=== PATIENT | female | born 1960 | race Caucasian/White ===

== ENCOUNTER → 2022-07-09 10:28 | Outpatient (BNVA) | payer MEDICARE, SELFPAY | PROVIDERS: Visit Provider Obstetrics & Gynecology | DX: N81.89 Other female genital prolapse (principal) | CPT/HCPCS: 81000 ==

== ENCOUNTER 2022-12-12 14:31 | Observation (INO) | payer MEDICARE, SELFPAY ==
[2022-12-10 11:03] LABS: Add Urine Microscopic? NO; Charge for UA Resulting for Rev
[2022-12-10 11:04] LABS: Basophils % 0.6 %; Eosinophils # 0.2 10^3/uL (0.0-0.8); Eosinophils % 4.3 %; Hematocrit 44.3 % (37.0-47.0); Hemoglobin 14.7 g/dL (11.5-15.3); Lymphocytes # 1.7 10^3/uL (0.8-4.8); Lymphocytes % 31.2 %; Mean Corpuscular HGB Conc 33.2 g/dL (30.0-36.0); Mean Corpuscular Hemoglobin 30.4 pg (28.0-34.0); Mean Corpuscular Volume 91.5 fl (81-99); Mean Platelet Volume 9.9 fL (7.4-10.4); Monocytes # 0.4 10^3/uL (0.2-0.9); Monocytes % 7.8 %; Neutrophils % 55.7 %; Nucleated Red Blood Cells % 0 %; Platelet Count 207 10^3/cmm (130-400); Red Blood Count 4.84 10^6/uL (4.1-5.3); Red Cell Distribution Width 12.5 % (12.1-15.1); White Blood Count 5.4 10^3/uL (4.0-10.0)
[2022-12-10 11:13] LABS: Bilirubin Urine Neg (Negative); Blood Urine Neg (Negative); Glucose Urine UA Norm (Normal); Ketones Urine Negative (Negative); Leukocyte Esterase Urine Negative (Negative); Nitrate Urine Negative (Negative); Protein Urine Neg (Negative); Urine Appearance Clear (CLEAR); Urine Color Yellow (Yellow); Urobilinogen Urine Neg (Negative); pH Urine 5 (5-7)
[2022-12-10 11:15] VITALS: BMI 29.3
[2022-12-10 11:25] LABS: Alanine Aminotransferase 27 U/L (0-33); Albumin Level 4.5 g/dL (3.5-5.2); Alkaline Phosphatase 80 U/L (35-105); Anion Gap 12.2 (5-19); Aspartate Amino Transferase 56 U/L (0-32); Blood Urea Nitrogen 16 mg/dL (8-23); Calcium 9.3 mg/dL (8.5-10.5); Carbon Dioxide 30 mmol/L (22-29); Chloride 101 mmol/L (98-107); Globulin 3.1 g/dL (1.3-4.6); Glomerular Filtration Rate 72.7 mL/min (90-130); Glucose 79 mg/dL (65-115); Osmolality Calculated 288 mOsm/kg (285-295); Potassium 4.2 mmol/L (3.5-5.1); Sodium 139 mmol/L (136-145); Total Bilirubin 0.7 mg/dL (0.15-1.2); Total Protein 7.6 g/dL (6.6-8.7)
--- NOTE | 2022-12-10 11:29 | P.ANESASSM_ITS ---
Pre-Anesthetic Assessment Height/Weight: Height 1.66 m Weight 81.193 kg Preop Diagnosis: Cystocele stage III Operation Date: 12/12/22 12:40 Proposed Procedures p Laparoscopic assisted vaginal hysterectomy, bilateral salpingo-oophorectomy 06290, Anterior colporrhaphy 18917, Single incision sling 32780,N81.10,N81.4(Not Applicable) - José Miguel Guerra MD s Anterior Repair Anterior Colporrhaphy(Not Applicable) - José Miguel Guerra MD s Sling Single Incision Sling(Not Applicable) - José Miguel Guerra MD Familial anesthetic complications: None Social No alcohol and No tobacco Exam alert, oriented x 3, clear to auscultation bilaterally and regular rate & rhythm Airway Mallampati: Class II Dentition: false Pulmonary None reported CV/HEM Hypertension Dextrocardia None reported Hepatic None reported GI Gastroesophageal Reflux Disease Metabolic None reported Musc/skel Lower Back Pain Neuropsych None reported Anesthetic Plan ASA status: 3 Anesthesia: General Risk of > 500 ml blood loss (7ml/kg in children): Yes, adequate IV access and fluids planned Medications/Allergies Home Medications Medication Instructions Recorded Confirmed Last Taken Type atorvastatin 10 mg tablet (Lipitor) 10 mg PO DAILY 07/09/22 12/10/22 12/10/22 History calcium carbonate 500 mg calcium 500 mg PO DAILY 07/09/22 12/10/22 12/10/22 History (1,250 mg) chewable tablet (Calcium 500) cholecalciferol (vitamin D3) 250 250 mcg PO DAILY 07/09/22 12/10/22 12/10/22 History mcg (10,000 unit) capsule diphenhydramine HCl 25 mg capsule 25 mg PO TID PRN Allergy Symptoms 07/09/22 12/10/22 12/09/22 History (Benadryl) lisinopril 5 mg tablet 5 mg PO DAILY 07/09/22 12/10/22 12/10/22 History omega 5-ysf-crp-fish oil 300 1 cap PO DAILY 07/09/22 12/10/22 12/10/22 History mg-1,000 mg capsule (Fish Oil) paroxetine HCl 40 mg tablet (Paxil) 40 mg PO DAILY 07/09/22 12/10/22 12/10/22 History buspirone 5 mg tablet 2.5 mg PO TID 12/10/22 12/10/22 12/10/22 History coenzyme Q10 10 mg capsule (Co 10 mg PO DAILY 12/10/22 12/10/22 12/10/22 History Q-10) lansoprazole 30 mg capsule,delayed 30 mg PO DAILY 12/10/22 12/10/22 12/10/22 History release (Prevacid) apcvveym-nth-uqzod ac 400 1 tab PO DAILY 12/10/22 12/10/22 12/10/22 History mcg-calcium carb 500 mg-vit K1 20 mcg tablet (Women's 50 Plus Daily Formula) ondansetron 4 mg disintegrating 4 mg translingual Q8H PRN Nausea 12/10/22 12/10/22 11/22/22 History tablet sumatriptan succinate 50 mg tablet 50 mg PO Q2H PRN Migraine Headache 12/10/22 12/10/22 11/22/22 History Allergies Allergy/AdvReac Type Severity Reaction Status Date / Time No Known Allergies Allergy Verified 12/10/22 09:04 PFSH Anesthesia Family History Other Ovarian cancer Denies family history of Colon cancer Pancreatic cancer Thyroid cancer Diabetes Heart disease Breast cancer Cancer Hypertension Uterine cancer Social History Smoking and tobacco status: never smoked Data Anesthesia 12/10/22 10:45 12/10/22 10:45 Short CBC 12/10/22 Range/Units 10:45 WBC 5.4 (4.0-10.0) 10^3/uL Hgb 14.7 (11.5-15.3) g/dL Hct 44.3 (37.0-47.0) % MCV 91.5 (81-99) fl Plt Count 207 (130-400) 10^3/cmm Neut % (Auto) 55.7 % Neut # (Auto) 3.00 (1.8-7.7) 10^3/uL BMP 12/10/22 10:45 Sodium 139 Potassium 4.2 Chloride 101 Carbon Dioxide 30 H BUN 16 Creatinine 0.8 Glucose 79 Calcium 9.3 Liver Function 12/10/22 Range/Units 10:45 Total Bilirubin 0.7 (0.15-1.2) mg/dL AST 56 H (0-32) U/L ALT 27 (0-33) U/L Alkaline Phosphatase 80 (35-105) U/L Albumin 4.5 (3.5-5.2) g/dL Urine 12/10/22 Range/Units 10:45 Urine Color Yellow (Yellow) Urine Appearance Clear (CLEAR) Urine pH 5 (5-7) Ur Specific [place] 1.030 (1.005-1.030) Urine Protein Neg (Negative) Urine Glucose (UA) Norm (Normal) Urine Ketones Negative (Negative) Urine Nitrate Negative (Negative) Urine Bilirubin Neg (Negative) Ur Leukocyte Esterase Negative (Negative) Cardiac Studies: No Data to Display
[2022-12-12] VITALS (18 sets, daily range): BP systolic 84–139; BP diastolic 48–83; PULSE 103–124; RESP 14–32; TEMP 36.1–37.2; O2SAT 90–99
[2022-12-12] MEDS: enoxaparin 30 mg/0.3 mL Syringe SUBCUT (09:19)
[2022-12-12] MEDS: sodium chloride 0.9% 500 ML IV (09:19)
[2022-12-12] MEDS: scopolamine 1.5 Patch 1 PATCH TRANSDERMA (09:19)
--- NOTE | 2022-12-12 09:27 | P.ANESUD_ITS ---
Pre-Anesthetic Update Pre-Anesthetic Assessment: Date of Surgery/Procedure: 12/12/22 Preop Payal gnosis: Cystocele stage III Proposed Procedure: Operation Date: 12/12/22 10:20 Proposed Procedures p Laparoscopic assisted vaginal hysterectomy, bilateral salpingo-oophorectomy 64392, Anterior colporrhaphy 01865, Single incision sling 99767,N81.10,N81.4(Not Applicable) - José Miguel Guerra MD s Anterior Repair Anterior Colporrhaphy(Not Applicable) - José Miguel Guerra MD s Sling Single Incision Sling(Not Applicable) - José Miguel Guerra MD Any changes to Pre-Anesthetic Assessment?: No Last Intake: Intake Last Liquid Date 12/11/22 Last Liquid Time 21:00 Last Solid Date 12/11/22 Last Solid Time 18:00 Labs Last 48hrs: Short CBC 12/10/22 Range/Units 10:45 WBC 5.4 (4.0-10.0) 10^3/ uL Hgb 14.7 (11.5-15.3) g/dL Hct 44.3 (37.0-47.0) % MCV 91.5 (81-99) fl Plt Count 207 (130-400) 10^3/c mm Neut % (Auto) 55.7 % Neut # (Auto) 3.00 (1.8-7.7) 10^3/u L BMP 12/10/22 10:45 Sodium 139 Potassium 4.2 Chloride 101 Carbon Dioxide 30 H BUN 16 Creatinine 0.8 Glucose 79 Calcium 9.3 Liver Function 12/10/22 Range/Units 10:45 Total Bilirubin 0.7 (0.15-1.2) mg/dL AST 56 H (0-32) U/L ALT 27 (0-33) U/L Alkaline Phosphata se 80 (35-105) U/L Albumin 4.5 (3.5-5.2) g/dL Urine 12/10/22 Range/Units 10:45 Urine Color Yellow (Yellow) Urine Appearance Clear (CLEAR) Urine pH 5 (5-7) Ur Specific [place] 1.030 (1.005-1.030) Urine Protein Neg (Negative) Urine Glucose (UA) Norm (Normal) Urine Ketones Negative (Negative) Urine Nitrate Negative (Negative) Urine Bilirubin Neg (Negative) Ur Leukocyte Marielle ase Negative (Negative) Blood Bank 12/10/22 10:45 Blood Type O Positive Rho(D) Type Positive Antibody Screen Negative Vitals: Temperature 97 F L 12/12/22 08:58 Temperature Source Temporal Artery S can 12/12/22 08:58 Pulse Rate 105 H 12/12/22 08:58 Respiratory Rate 16 12/12/22 08:58 Blood Pressure 139/83 12/12/22 08:58 Blood Pressure Beatris n 101 12/12/22 08:58 Pulse Oximetry 98 12/12/22 08:58 Oxygen Delivery Me thod 12/12/22 09:04 Exam: Pre-Anes Outpt Exam: alert, oriented x 3, clear to auscultation bilaterally and regular rate & rhythm Cardiac Studies: No Data to Display
--- NOTE | 2022-12-12 09:51 | W.PM.OPSUD ---
Surgery/Procedure H&P Update DATE OF PROCEDURE: December 12, 2022 DATE H&P PERFORMED: 12/10/22 H&P UPDATE INFORMATION: I have reviewed H&P completed within last 30 days, I have examined patient prior to procedure and No changes to prior documentation PREOP DIAGNOSIS: Cystocele stage III PLANNED PROCEDURE: Operation Date: 12/12/22 10:20 Proposed Procedures p Laparoscopic assisted vaginal hysterectomy, bilateral salpingo-oophorectomy 26745, Anterior colporrhaphy 39108, Single incision sling 98731,N81.10,N81.4(Not Applicable) - José Miguel Guerra MD s Anterior Repair Anterior Colporrhaphy(Not Applicable) - José Miguel Guerra MD s Sling Single Incision Sling(Not Applicable) - José Miguel Guerra MD
[2022-12-12] MEDS: sodium chloride 0.9% 500 ML 999 ML IV (10:10)
[2022-12-12] MEDS: ceFOXitin 2,000 MG in sodium chloride 0.9% (plus) 50 ML 100 MG IV (10:13)
[2022-12-12] MEDS: lidocaine-epi 1% 20 mL INJ INJECTION (12:48)
[2022-12-12] MEDS: estrogens Conjugated Cream 30 gm 1 APPLIC VAGINAL (12:49)
--- NOTE | 2022-12-12 13:47 | P.OP_ITS ---
Operative Report Date of procedure: December 12, 2022 Pre-op diagnosis: Preop Diagnosis Cystocele stage III Post-op diagnosis: Same as above Post-op findings: Dense bladder adhesions Procedure done: Laparoscopic-assisted vaginal hysterectomy with bilateral salpingo-oophorectomy. Anterior colporrhaphy augmented with allograft. Single incision mid urethral sling. Cystoscopy Specimens removed/disposition: Uterus. Left and right fallopian tube and ovaries Surgeon: José Miguel Guerra MD Estimated blood loss (mL): 200 IV fluids (mL): 1,200 Urine output (mL): 400 Procedure: After discussing informed consent again, the patient was taken to the operating room where general anesthesia was administered. She was placed in the dorsal lithotomy position in low stirrups and prepped and draped in sterile fashion. Pre-Procedure Time-Out verifying the correct patient identity, correct procedure verified with consent, correct site and side, correct patient position, availability of correct implants and any special equipment or requirements was performed and acknowledge by the OR team. After the initial preparation, the procedure commenced at the vagina. With a Bookwalter vaginal retractor was place to visualize the cervix; the anterior and posterior lips of the cervix were separately grasped and clamped with leslie tooth tenaculum. The cervix was then dilated to a #6 hegar dilator and a uterine manipulator within the uterine cavity for manipulation purposes being careful not to puncture the uterus. A Sinclair catheter was placed in the bladder. Attention was then turned to the abdomen. The umbilical region was infiltrated with 2% lidocaine with epinephrine Following infiltration with 2% lidocaine with epinephrine, an intraumbilical incision was made and the Verres needle was gently advanced taking care to feel for the typical sensation of penetrating the peritoneum. With CO2 infiltration, an opening pressure of 5 mmHg was noted, and following this, a pneumoperitoneum of 15 mmHg was created. A 5 mm Optiview trocar was then passed through the same incision under direct visualization. Trocar was removed and the laparoscope was then inserted through the trocar sleeve. Visualization of the peritoneal cavity was then obtained and a brief inspection did not reveal any signs of complications from entry. Under direct observation, a second incision was made 3 cm above the symphysis pubis, and a 5 mm trocar and sleeve were admitted into the abdomen under direct, laparoscopic visualization, 5mm flank ports were then placed laterally on left sides taking care to respect anatomical landmarks and vessels without complication. Once the placement of the ports was complete, the actual laparoscopic procedure began. The pelvic contents were visualized and noted an enlarged irregular uterus, deep cul-de-sac, normal bilateral fallopian tubes and ovaries normal, normal appendix, and both ureters were identified crossing the pelvic brim and pelvic sidewall. The left infundibulopelvic ligament was grasped and was coagulated/sealed and then transected with the Enseal device. The mesosalpinx was then sequentially, clamped, ligated, and cut using the Enseal device working alongside the length of the tube and towards the cornua. The left round ligament was grasped coagulated/sealed and transected using Enseal device. The left broad ligament was opened down to the level of the uterine artery and vein. The right infundibulopelvic ligament was grasped and the tuboovarian ligament was coagulated/sealed and then transected with the Enseal device. The mesosalpinx was then sequentially, clamped, ligated, and cut using the Enseal device working alongside the length of the tube and towards the cornua. The right round ligament was grasped coagulated/sealed and then transected with the Enseal device, and the right broad ligament was opened down to the level of the right uterine artery and vein. Peritoneum of the lower uterine segment was entered using Enseal, and the bladder was dissected off the lower uterine segment using blunt dissection. Careful inspection revealed complete hemostasis. Attention was then turned to the vaginal aspect of the surgery. A Bookwalter vaginal retractor was placed in the vagina and the uterine manipulator was removed. The tenaculum was repositioned anteriorly and posteriorly. A circumferential incision was made at the cervical vaginal reflection using cautery. This was undermined first anteriorly and a colpotomy made without difficulty. This was then repeated posteriorly and a similar colpotomy made. Beginning first on the patient's left, the uterosacral and cardinal ligament was clamped, sealed, divided with the Enseal device and suture ligated. Two bites were required to reach the previous dissection margin of the left side. The same process was then repeated on the patient's right hand side, at which point, the specimen was completely freed. Once the sutures had been placed and the pedicles secured, the uterus along with both tubes and ovaries were removed transvaginally without difficulty. All pedicles were inspected and hemostasis was confirmed. The patietn was given indigo carmine. The vaginal vault was then oversawn with a running locking Vicryl suture, securing first the posterior edge of the cuff followed by the anterior edge. Good hemostasis was obtained. Once these had been tied off, all sutures were trimmed. Then proceeded to perform the single incision sling. The anterior vaginal mucosa beneath the midurethra was infiltrated with 0.5% Marcaine with epinephrine. A vertical midline incision was made beneath the midurethra, nearly 1.5 cm length. Careful submucosal dissection was performed bilaterally up to the interior portion of the inferior pubic ramus. The insertion of adductor longus tendon on the patient?s pubic ramus was identified as reference land kaitlynn. Palpated the notch along the internal edge of ischiopubic ramus where the adductor longus tendon and the inferior pubic ramus meet. The Altis single incision sling (SIS) was selected. Then the needle of the SIS inserted aiming at the location of this notch. One of the integrated self- fixating tips place onto the needle by sliding it over the end of the needle. The needle/sling assembly was inserted toward the location of identified reference notch making sure that the flat of the handle is perpendicular to the desired path. The needle was tracked along the posterior surface of the ischiopubic ramus until the midline kaitlynn on the mesh is approximately at the midline position under the urethra. The needle was removed and the same was repeated on the contralateral side until the appropriate sling tension under the urethra was achieved ensuring that the mesh lays flat. The needle was removed and vaginal incision was closed in a running interlocking fashion with 2-0 Vicryl. The perform the anterior colporrhaphy augmented with allograft. The vaginal mucosa was then injected in the midline with normal saline. The vaginal mucosa was scored in the midline with the Bovie approximately 1 cm medial to the urethral meatus to 1 cm distal to the vaginal cuff. This vaginal mucosa was then undermined and then incised in the midline with the Metzenbaum scissors. The lateral aspects of the vaginal mucosa were then grasped with the Allis clamps and the vaginal mucosa was then dissected off the underlying fascia with the Metzenbaum scissors. Again, there was noted to be quite a bit of oozing at the incision, which was controlled with cautery. After adequate dissection was performed, bilaterally. A Coloplast allograft was modified at time of application to fit spacea, 3x3 cm piece . The allograft placed in front of cystocele ready to be implanted facing the vagina mucosa. Suture is placed at distal end of graft and placed towards vaginal cuff. Final suture is placed on proximal portion of the graft to complete the placement overlying the bladder. Then Interrupted vertical mattress sutures of 0 Vicryl were used to elevate the cystocele superiorly. The excessive vaginal mucosa was then trimmed with the Metzenbaum scissors and the vaginal mucosa was then reapproximated in the running interlocking fashion with 2-0 Vicryl. Then attention was again turned back to the abdomen and inspected the abdomen to ensure complete hemostasis. Once the entire abdomen was inspected. The ports were then removed under direct visualization being sure to note hemostasis of the port sites on removal. The incisions were then closed with interrupted Monocryl sutures and Dermabond adhesive. Then the Sinclair catheter was removed and cystoscope was inserted. The bladder was filled with sterile water. Complete evaluation of the bladder mucosa was performed noting no lacerations, dimpling, tears, bleeding of the mucosa or muscular layers. Both ureteral orifices were identified. Prompt excretion of blue urine from both ureteral orifices was noted. Cystoscope was withdrawn. The Sinclair catheter was replaced. All instruments were removed from the vagina at this time. A vaginal packing with Premarin cream was placed to provide support during the healing process. The patient tolerated the procedure well, anesthesia reversed, and the patient was taken to the recovery room in stable condition. All sponges, instruments, and sharps were counted and correct x 3.
--- NOTE | 2022-12-12 14:25 | PC.NURSE ---
Nasal trumpet removed @1405 Patient seeing cats. Redirected easily
--- NOTE | 2022-12-12 14:57 | ANE.PACU2 ---
Inpatient post-anesthesia follow up: Airway intact: Yes Vital signs: Temperature 98.1 F Pulse Rate 109 Respiratory Rate 16 Blood Pressure 105/54 Pulse Oximetry 93 Oxygen Delivery Me thod Room Air Oxygen Flow Rate 2 Fraction of Inspir ed Oxygen Hydration adequate: Yes Nausea and vomiting: No Pain level: 1 Mental status: Baseline
[2022-12-12] MEDS: dextrose 5%-lactated ringers 1,000 ML 125 ML IV (16:11)
[2022-12-12] MEDS: docusate sodium 100 mg Capsule PO (17:39)
[2022-12-12] MEDS: ketorolac 30 mg/mL INJ IVP (19:39)
[2022-12-13] MEDS: dextrose 5%-lactated ringers 1,000 ML 125 ML IV (00:32)
[2022-12-13] MEDS: ketorolac 30 mg/mL INJ IVP (01:12)
[2022-12-13 04:23] VITALS: BP 104/56; PULSE 93; RESP 17; TEMP 36.7; O2SAT 99
[2022-12-13 05:09] LABS: Hematocrit 30.8 % (37.0-47.0); Hemoglobin 10.1 g/dL (11.5-15.3); Mean Corpuscular HGB Conc 32.8 g/dL (30.0-36.0); Mean Corpuscular Hemoglobin 29.7 pg (28.0-34.0); Mean Corpuscular Volume 90.6 fl (81-99); Mean Platelet Volume 9.7 fL (7.4-10.4); Platelet Count 134 10^3/cmm (130-400); Red Cell Distribution Width 12.7 % (12.1-15.1); White Blood Count 6.9 10^3/uL (4.0-10.0)
--- NOTE | 2022-12-13 05:12 | PC.NURSE ---
Sinclair catheter removed 10 ml was taken from the ballon catheter was intact upon removal patient tolerated procedure well. She has been up to the chair and walked through out the night. She has had solid food and tolerated it well. Her pain has been well managed. Vaginal packing was removed at this time as well. She tolerated the procedure well.
[2022-12-13] MEDS: ibuprofen 800 mg tablet PO (10:33)
[2022-12-13] MEDS: docusate sodium 100 mg Capsule PO (10:34)
[2022-12-13] MEDS: calcium carbonate 500 mg Chew Tablet PO (10:34)
[2022-12-13 10:45] VITALS: BP 112/59; PULSE 90; RESP 17; TEMP 36.6; O2SAT 99
--- NOTE | 2022-12-13 11:23 | P.DS_ITS ---
Discharge Providers ANIMATED CARTOONS PAINTER Date of Admission: 12/12/22 14:31 Date of Discharge: 12/13/22 Attending Provider at Admission: José Miguel Guerra MD Attending Provider at Discharge: José Miguel Guerra MD Primary ANIMATED CARTOONS PAINTER: José Miguel Guerra MD Primary Care Provider: Evie Brunner Reason for Visit Reason for Visit: N81.4 Brief History: Ms. Woods is a 62 year old with a symptomatic cystocele stage III. Hospital Course Hospital Course Mrs. Woods 62-year-old female admitted for planned laparoscopic assisted vaginal hysterectomy with bilateral salpingo-oophorectomy, anterior colporrhaphy augmented with allograft and single incision mid urethral sling. The procedures were performed without complications. Overnight observation was uneventful. She is afebrile and hemodynamically stable postoperative day 1. Tolerating diet well. Ambulating without difficulty. PVR within normal limits. Patient was counseled regarding pelvic rest for 6 weeks (no sex, no tampons, no vaginal douches). Return to the emergency room if any fever, increased bleeding or pain. She was also counseled regarding weight lifting limitations to 10 pounds. Physical Exam Narrative: GA: Alert and oriented ?3. HEENT: WNL. Heart: Regular rate and rhythm. Lungs: Clear to auscultation bilaterally. Abdomen: Bowel sounds present, nontender, minimal tenderness. EXECUTOR OF ESTATE: Spotting bleeding. Extremities: No edema, no cyanosis, no calves pain. Urinary Catheter Management: Sinclair: Cath Placed During This Visit: yes, but has since been removed by the nurse Reason for Continuing Indwelling Catheter: Decision to DC Catheter Urinary Catheter Date of Insertion: 12/12/22 Urinary Catheter Time of Insertion: 10:55 Date Urinary Catheter Removed: 12/13/22 Time Urinary Catheter Discontinued: 05:00 History History History 6 Term 4 0 Miscarriages/Ectopic 2 Living Children 4 Discharge Data Studies Completed and Pending Pending at discharge Category Date Time Status Pathology: Surgical [PTH] Routine Pth 12/12/22 12:35 Received Laboratory Results WBC 6.9 10^3/uL (4.0-10.0) 12/13/22 04:59 RBC 3.40 10^6/uL (4.1-5.3) L 12/13/22 04:59 Hgb 10.1 g/dL (11.5-15.3) L 12/13/22 04:59 Hct 30.8 % (37.0-47.0) L 12/13/22 04:59 MCV 90.6 fl (81-99) 12/13/22 04:59 MCH 29.7 pg (28.0-34.0) 12/13/22 04:59 MCHC 32.8 g/dL (30.0-36.0) 12/13/22 04:59 RDW 12.7 % (12.1-15.1) 12/13/22 04:59 Plt Count 134 10^3/cmm (130-400) 12/13/22 04:59 MPV 9.7 fL (7.4-10.4) 12/13/22 04:59 Neut % (Auto) 55.7 % 12/10/22 10:45 Lymph % (Auto) 31.2 % 12/10/22 10:45 [place] % (Auto) 7.8 % 12/10/22 10:45 Eos % (Auto) 4.3 % 12/10/22 10:45 Baso % (Auto) 0.6 % 12/10/22 10:45 Neut # (Auto) 3.00 10^3/uL (1.8-7.7) 12/10/22 10:45 Lymph # (Auto) 1.7 10^3/uL (0.8-4.8) 12/10/22 10:45 [place] # (Auto) 0.4 10^3/uL (0.2-0.9) 12/10/22 10:45 Eos # (Auto) 0.2 10^3/uL (0.0-0.8) 12/10/22 10:45 Baso # (Auto) 0.0 10^3/uL (0.0-0.1) 12/10/22 10:45 Nucleated RBC % (auto) 0 % 12/10/22 10:45 Nucleated RBCs # 0.0 /100WBC 12/10/22 10:45 Sodium 139 mmol/L (136-145) 12/10/22 10:45 Potassium 4.2 mmol/L (3.5-5.1) 12/10/22 10:45 Chloride 101 mmol/L (98-107) 12/10/22 10:45 Carbon Dioxide 30 mmol/L (22-29) H 12/10/22 10:45 Anion Gap 12.2 (5-19) 12/10/22 10:45 BUN 16 mg/dL (8-23) 12/10/22 10:45 Creatinine 0.8 mg/dL (0.5-0.9) 12/10/22 10:45 GFR Calculation 72.7 mL/min (90-130) L 12/10/22 10:45 Glucose 79 mg/dL (65-115) 12/10/22 10:45 Calculated Osmolality 288 mOsm/kg (285-295) 12/10/22 10:45 Calcium 9.3 mg/dL (8.5-10.5) 12/10/22 10:45 Total Bilirubin 0.7 mg/dL (0.15-1.2) 12/10/22 10:45 AST 56 U/L (0-32) H 12/10/22 10:45 ALT 27 U/L (0-33) 12/10/22 10:45 Alkaline Phosphatase 80 U/L (35-105) 12/10/22 10:45 Total Protein 7.6 g/dL (6.6-8.7) 12/10/22 10:45 Albumin 4.5 g/dL (3.5-5.2) 12/10/22 10:45 Globulin 3.1 g/dL (1.3-4.6) 12/10/22 10:45 Urine Color Yellow (Yellow) 12/10/22 10:45 Urine Appearance Clear (CLEAR) 12/10/22 10:45 Urine pH 5 (5-7) 12/10/22 10:45 Ur Specific [place] 1.030 (1.005-1.030) 12/10/22 10:45 Urine Protein Neg (Negative) 12/10/22 10:45 Urine Glucose (UA) Norm (Normal) 12/10/22 10:45 Urine Ketones Negative (Negative) 12/10/22 10:45 Urine Blood Neg (Negative) 12/10/22 10:45 Urine Nitrate Negative (Negative) 12/10/22 10:45 Urine Bilirubin Neg (Negative) 12/10/22 10:45 Urine Urobilinogen Neg mg/dL (Negative) 12/10/22 10:45 Ur Leukocyte Esterase Negative (Negative) 12/10/22 10:45 Blood Type O Positive 12/10/22 10:45 Rho(D) Type Positive 12/10/22 10:45 Antibody Screen Negative 12/10/22 10:45 Vitals Last Vital Signs Temp 97.9 F 12/13/22 10:45 Pulse 90 12/13/22 10:45 Resp 17 12/13/22 10:45 BP 112/59 12/13/22 10:45 Pulse Ox 99 12/13/22 10:45 O2 Del Method 12/13/22 10:45 O2 Flow Rate 2 12/12/22 14:25 Discharge Plan Discharge Patient Disposition: Home Condition: Stable Prescriptions: New ibuprofen 800 mg tablet 800 mg PO TID PRN (Reason: pain) Qty: 60 0RF hydrocodone-acetaminophen 5-325 mg tablet 1 tab PO Q4H PRN (Reason: pain) Qty: 20 0RF Iron (ferrous sulfate) 325 mg (65 mg iron) tablet 325 mg PO BID Qty: 60 0RF Colace 100 mg capsule 100 mg PO BID Qty: 60 0RF acetaminophen 325 mg capsule 325 mg PO Q4H PRN (Reason: fever or pain) Qty: 60 0RF Continued diphenhydramine HCl [Benadryl] 25 mg capsule 25 mg PO TID PRN (Reason: Allergy Symptoms) calcium carbonate [Calcium 500] 500 mg calcium (1,250 mg) tablet,chewable 500 mg PO DAILY omega 5-avc-yuj-fish oil [Fish Oil] 300-1,000 mg capsule 1 cap PO DAILY cholecalciferol (vitamin D3) 250 mcg (10,000 unit) capsule 250 mcg PO DAILY atorvastatin [Lipitor] 10 mg tablet 10 mg PO DAILY paroxetine HCl [Paxil] 40 mg tablet 40 mg PO DAILY lisinopril 5 mg tablet 5 mg PO DAILY buspirone 5 mg tablet 2.5 mg PO TID coenzyme Q10 [Co Q-10] 10 mg capsule 10 mg PO DAILY sumatriptan succinate 50 mg tablet 50 mg PO Q2H PRN (Reason: Migraine Headache) lansoprazole [Prevacid] 30 mg Capsule,Delayed Release(Dr/Ec) 30 mg PO DAILY ondansetron 4 mg tablet,disintegrating 4 mg translingual Q8H PRN (Reason: Nausea) Women's 50 Plus Daily Formula 400 mcg-500 mg calcium-20 mcg Tablet 1 tab PO DAILY Discharge Orders: Discharge Order (Routine); Ordered 12/13/22 Ordered By: José Miguel Guerra Referrals: José Miguel Guerra MD [Physician] - 12/27/22 11:30 am (2 week post-op: 12/27/22 @ 11:30 6 week post-op: 01/25/23 @ 2:30) Discharge Diet: Usual diet Discharge Activity: Limit activity as instructed Patient Instructions: Cystoscopy, Salpingo-Oophorectomy (GEN), Laparoscopic Oophorectomy (GEN), Hysterectomy (GEN), Laparoscopic Hysterectomy (GEN), Bladder Sling for Women (GEN), Anterior Vaginal Repair (GEN), Posterior Vaginal Repair (GEN), Opioid Safety Discharge Attestations ANIMATED CARTOONS PAINTER Time Spent in Discharge Care*: greater than 30 min Coding Level of Care Code Acute Code for Chg Yanira
[2022-12-13 12:04] VITALS: BP 112/59; PULSE 90; RESP 17; TEMP 36.6; O2SAT 99
== END 2022-12-13 12:10 | disposition home or self-care (01) ==
LOC: OBGYN 14:31
PROVIDERS: Admitting Provider Obstetrics & Gynecology; PCP Nurse Practitioner Family; Visit Provider Obstetrics & Gynecology
PROC: 0UT9FZZ Resection of Uterus, Via Natural or Artificial Opening With Percutaneous Endoscopic Assistance (ICD-10-PCS; CPT 57240; principal; 2022-12-12 10:10)
PROC: 0JQC0ZZ Repair Pelvic Region Subcutaneous Tissue and Fascia, Open Approach (ICD-10-PCS; CPT 57240; 2022-12-12 10:10)
PROC: (CPT 57288; 2022-12-12 10:10)
PROC: (CPT 58720; 2022-12-12 10:10)
DX: N81.10 Cystocele, unspecified (principal); N32.89 Other specified disorders of bladder; K21.9 Gastro-esophageal reflux disease without esophagitis; I10 Essential (primary) hypertension
CPT/HCPCS: 57240; 57288; 58552; 36415; 51798; 80053; 81003; 85025; 85027; 86850; 86900; 88307; 96374; 96376; C1713; C1762; G0378; J0694; J1650; J1885; J2250; J3010; J3490; J7040; J7121

== ENCOUNTER 2024-02-19 15:01 | Outpatient (CLI) | payer MEDICARE, SELFPAY ==
--- NOTE | 2024-02-19 15:08 | MM_ITS ---
WS: [id number] BILATERAL 3D TOMOSYNTHESIS DIGITAL SCREENING MAMMOGRAPHY WITH CAD CLINICAL INFORMATION: SCREENING HISTORY: Screening mammogram. History of LEFT breast implant COMPARISON: Baseline TECHNIQUE: Bilateral CC and MLO views. FINDINGS: Scattered fibroglandular densities bilaterally. Congenital absence of the LEFT pectoralis. LEFT breas t implant with capsular contractions. No suspicious focal mass, asymmetry, calcifications, or architectural distortion. No evidence of sindhu gnancy. MM/[place] [id number] IMPRESSION: BI-RADS: 2-Benign FOLLOW UP: 1 Year Follow-up Recommend return to annual screening mammography.
== END 2024-02-19 15:02 | disposition home or self-care (01) ==
PROVIDERS: PCP Nurse Practitioner Family; Visit Provider Registered Nurse
DX: Z12.31 Encounter for screening mammogram for malignant neoplasm of breast (principal); R92.323 Mammographic fibroglandular density, bilateral breasts
CPT/HCPCS: 77063; 77067

== ENCOUNTER 2024-03-08 09:03 | Emergency (ER) | payer MEDICARE, SELFPAY ==
[2024-03-08 09:29] VITALS: BP 162/71; PULSE 73; RESP 18; TEMP 36.7; O2SAT 98
--- NOTE | 2024-03-08 09:44 | W.ED.SKABFB ---
HPI - Skin/Abscess/Foreign Bdy General: Chief complaint: Skin/Abscess/Foreign Body Stated complaint: Bite on left arm Time Seen by Provider: 03/08/24 09:39 History of Present Illness: Patient presents to the ER with a sore on her left bicipital region with a red streak going into her medial bicep upper arm. Patient states she was bit on her arm there 4 days ago. Patient had a sore there ever since and just noticed streaking this morning. Patient denies any fevers chills, Review of Systems General: Reports: 10 or more systems reviewed and unremarkable except in HPI and below PFSH ED PFSH: Medical History Tachycardia Hyperlipidemia Hypertension Indigestion Anemia Menstrual migraine Anxiety and depression Family history of ovarian cancer Surgical History History of hysterectomy (~12/12/22) LAVH, BSO, Anterior colporrhaphy augmented with allograft. Single Incision mid urethral sling. Cystoscopy. Performed by Charlie at [facility] for Grade 3 cystocele. Family History Other Ovarian cancer Denies family history of Colon cancer Pancreatic cancer Thyroid cancer Diabetes Heart disease Breast cancer Cancer Hypertension Uterine cancer Social History Smoking and tobacco/nicotine status: never used tobacco/nicotine Physical Exam Const: COMMON NORMALS: no acute distress, average body habitus, patient oriented x3, no limitations, healthy appearing, alert and well nourished Neck/C-Spine: COMMON NORMALS: no JVD Chest: COMMONS NORMALS: normal inspection of the chest and normal palpation of entire chest wall Resp: COMMON NORMALS: normal respiratory effort, No retractions, No use of accessory muscles and clear to auscultation bilaterally AUSCULTATION: clear to auscultation bilaterally Cardio: COMMON NORMALS: no JVD, regular rate, regular rhythm, S1 normal heart sound present, S2 normal heart sound present, No gallops present (Cardio), No clicks present (Cardio), No murmurs present (Cardio) and No rub (Cardio) RATE: regular rate RHYTHM: regular rhythm HEART SOUNDS: S1 normal heart sound present and S2 normal heart sound present GI: COMMON NORMALS: Normal to inspection, nondistended, normoactive bowel sounds present, Soft to palpation, non-tender, No hepatosplenomegaly present and no masses PALPATION: Yes Soft to palpation and Yes No hepatosplenomegaly present Neuro: COMMON NORMALS: patient oriented x3 SENSORIUM/ORIENTATION: Yes alert Skin: NARRATIVE SKIN EXAM: Irritated lesion on the left outer bicipital area, was zigzag streaking to the inner bicipital area. Course Vital Signs: Vital signs: Vital Signs Temperature 98.1 F 03/08/24 09:29 Pulse Rate 73 03/08/24 09:29 Respiratory Rate 18 03/08/24 09:29 Blood Pressure 162/71 03/08/24 09:29 Pulse Oximetry 98 03/08/24 09:29 Oxygen Delivery Me thod Room Air 03/08/24 09:29 MDM - Skin/Abscess/Foreign Bdy Medicial Decision Making Patient has original wound with cellulitis streaking into her bicipital region. Patient be placed on Bactrim DS and instructed to follow-up with her PCP within 7 days. Differential Diagnosis Likely cellulitis Medical Records I reviewed the patient's medical records. Lab Data I reviewed the patient's lab results. No radiology studies performed this visit Discharge Plan Discharge Patient Disposition: Home Clinical Impression: Cellulitis Qualifiers: Site of cellulitis: extremity Site of cellulitis of extremity: upper extremity Laterality: left Qualified Code(s): L03.114 - Cellulitis of left upper limb Condition: Stable Prescriptions: New Bactrim DS 800-160 mg tablet 1 tab PO BID Qty: 14 0RF No Action diphenhydramine HCl [Benadryl] 25 mg capsule 25 mg PO TID PRN (Reason: Allergy Symptoms) calcium carbonate [Calcium 500] 500 mg calcium (1,250 mg) tablet,chewable 500 mg PO DAILY omega 0-pju-pyn-fish oil [Fish Oil] 300-1,000 mg capsule 1 cap PO DAILY cholecalciferol (vitamin D3) 250 mcg (10,000 unit) capsule 250 mcg PO DAILY atorvastatin [Lipitor] 10 mg tablet 10 mg PO DAILY paroxetine HCl [Paxil] 40 mg tablet 40 mg PO DAILY lisinopril 5 mg tablet 5 mg PO DAILY estradiol 0.01 % (0.1 mg/gram) cream 1 g vaginal DAILY Qty: 42.5 0RF Rx Instructions: for 30 days buspirone 5 mg tablet 2.5 mg PO TID coenzyme Q10 [Co Q-10] 10 mg capsule 10 mg PO DAILY sumatriptan succinate 50 mg tablet 50 mg PO Q2H PRN (Reason: Migraine Headache) lansoprazole [Prevacid] 30 mg Capsule,Delayed Release(Dr/Ec) 30 mg PO DAILY ondansetron 4 mg tablet,disintegrating 4 mg translingual Q8H PRN (Reason: Nausea) Women's 50 Plus Daily Formula 400 mcg-500 mg calcium-20 mcg Tablet 1 tab PO DAILY ibuprofen 800 mg tablet 800 mg PO TID PRN (Reason: pain) Qty: 60 0RF Iron (ferrous sulfate) 325 mg (65 mg iron) tablet 325 mg PO BID Qty: 60 0RF Colace 100 mg capsule 100 mg PO BID Qty: 60 0RF acetaminophen 325 mg capsule 325 mg PO Q4H PRN (Reason: fever or pain) Qty: 60 0RF Discharge Orders: Discharge ED (Routine); Ordered 03/08/24 Ordered By: Diego Carlos Referrals: Evie Brunner, TOOL SUPERVISOR [Primary Care Provider] - 1 week Patient Instructions: Cellulitis (ED) Activity Restrictions/Additional Instructions: Please take all your antibiotics please keep the area clean and dry. Be sure to look for worsening streaking worsening pain or drainage. Please follow-up with your family practitioner within next 7 days for further evaluation and treatment. Coding Level of Care Code ED Cash Sales Audit Clerk for Melani Doyle
[2024-03-08 10:12] VITALS: BP 163/90; PULSE 91; O2SAT 95
[2024-03-08 10:18] VITALS: BP 163/90; PULSE 91; RESP 18; TEMP 36.7; O2SAT 95
== END 2024-03-08 10:20 | disposition home or self-care (01) ==
PROVIDERS: Emergency Provider Emergency Medicine; PCP Nurse Practitioner Family
DX: L03.114 Cellulitis of left upper limb (principal); E78.5 Hyperlipidemia, unspecified; I10 Essential (primary) hypertension
CPT/HCPCS: 99283

== ENCOUNTER 2025-05-22 05:29 | Emergency (ER) | payer MEDICARE, SELFPAY ==
[2025-05-22 05:36] VITALS: BP 133/72; PULSE 95; RESP 18; TEMP 36.7; O2SAT 100; BMI 27.4
--- OUTSIDE RECORDS SUMMARY | 2025-05-22 05:41 | XMS_ITS | Clinical Summary ---
Author Organization [facility] [address] [place] [address] Care Team Providers Care Last Repairer Name Role Phone Rafael Mcgee MD Primary Care Provider [phone] Allergies No known active allergies Medications ibuprofen (MOTRIN) 600 mg tabletIndications :Knee effusion, right Take 1 Tablet (600 mg) by mouth every 6 hours as needed for Pain, Mild. 90 Tablet 024 Active Additional Information Patient not taking.Reported on 01/05/2025 atorvastatin (LIPITOR) 20 mg tabletIndications :Hyperlipidemia, unspecified hyperlipidemia type Take 1 Tablet (20 mg) by mouth daily with supper. 100 Tablet 3 024 Active PARoxetine HCl (PAXIL) 40 mg tabletIndications :Recurrent major depressive disorder, in partial remission Take 1 tablet by mouth once daily 100 Tablet 2 025 Active lisinopriL (PRINIVIL) 5 mg tabletIndications :Essential hypertension Take 1 Tablet (5 mg) by mouth daily. 100 Tablet 3 025 Active losartan (COZAAR) 50 mg tabletIndications :Essential hypertension Take 1 Tablet (50 mg) by mouth daily. 100 Tablet 3 025 2024 Discontinued Active Problems Problem Noted Date Diagnosed Date Dextrocardia 05/25/2022 Uterine prolapse 05/25/2022 Essential hypertension 06/14/2021 Hyperlipidemia 06/14/2021 Recurrent major depressive disorder, in partial remission 06/14/2021 Encounters Date Type Department Care Team Description 05/12/2025 External Device Data STL ABSTRACTION Provider, Abstract 05/11/2025 Refill [facility] [place] [address] [place] [address] Shayna Grey, ELECTRICAL TEST ENGINEER Essential hypertension (Primary Dx) 05/10/[address] [phone] Rafael Mcgee MD Med Change Request 04/07/2025 External Device Data STL ABSTRACTION Provider, Abstract 03/16/2025 External Device Data STL ABSTRACTION Provider, Abstract 03/16/2025 External Device Data STL ABSTRACTION Provider, Abstract 02/20/[address] [phone] MatildaShayna, ELECTRICAL TEST ENGINEER Essential hypertension from Last 3 Months Family History Medical History Relation Name Comments Cancer Father Heart Disease Father Hypertension Father Cancer Mother Heart Disease Mother Hypertension Mother Relation Name Status Comments Father Mother Social History Tobacco Use Types Packs/Day Years Used Date Smoking Tobacco: Former Passive Smoke Exposure: Past Smokeless Tobacco: Never Tobacco Cessation:Counseling Given: No Alcohol Use Standard Drinks/Week Comments Not Currently 0 (1 standard drink = 0.6 oz pur e alcohol) Financial Resource Strain Answer Date R ecorded How hard is it for you to pa y for the very basics like food, housing, medical care, and heating? Not very hard 08/21/2022 Food Insecurity Answer Date Recorded In the past 12 months, have you worried that your food would run out before you had money to buy more? Never true 08/21/2022 In the past 12 months, did y ou run out of food and didn't have money to buy more? Never true 08/21/2022 Transportation Needs Answer Date Record ed In the past 12 months, has l ack of transportation kept you from medical appointments or from getting medications? No 08/21/2022 Lack of Transportation (Non-Medical) Not on file 08/21/2022 Comments No Sex and Gender Information Value Date Recorded Sex Assigned at Not on file Legal Sex Female 12:48 PM CDT Gender Identity Not on file Sexual Orientation Not on file Last Filed Vital Signs Vital Sign Reading Time Taken Comments Blood Pressure 132/84 01/05/2025 1:16 PM CDT Pulse 103 01/05/2025 1:16 PM CDT Temperature 36.3 C (97.4 F) 01/05/2025 1:16 PM CDT Respiratory Rate 18 01/05/2025 1:16 PM CDT Oxygen Saturation 100% 01/05/2025 1:16 PM CDT Inhaled Oxygen Concentration - - Weight 79.7 kg (175 lb 12.8 oz) 01/05/2025 1:16 PM CDT Height 167.6 cm (5' 6 ) 01/05/2025 1:16 PM CDT Body Mass Index 28.37 01/05/2025 1:16 PM CDT Plan of Treatment Upcoming Encounters Date Type Department Care Team (Late st Contact Info) Description 06/03/2025 1:00 PM CDT Office Visit [facility] [place] [address] [facility] [address] [facility] [place] [address] Evie Brunner, ELECTRICAL TEST ENGINEER [address] [facility] [place] [address] Health Maintenance Due Date Last Done Comments Pre-Diabetes and Diabetes Screening 1960 FIT/FOBT Q 1 YEAR (AUTO ORDER) 1978 DTAP/TDAP/TD VACCINES (1 - Tdap) 1979 HPV/Cotest (21-29) 1981 HPV/Cotest (30-65) 1990 COLORECTAL CANCER SCREENING (AUTO ORDER) 2005 COLORECTAL SCREENING 2005 FIT/FOBT Q 1 year 2005 Flex Sig/CT Colonography Q 5 years 2005 ZOSTER VACCINE (1 of 2) 2010 CERVICAL CANCER SCREENING 03/02/2023 PAP SMEAR 03/02/2023 03/02/2020 Medicare [place] ([place]) Preventative Visit/Annual Wellness Visit 09/23/2024 06/03/2024, 04/10/2023, 08/21/2022 BREAST CANCER SCREENING 02/18/2025 02/19/2024 INFLUENZA VACCINE (#1) 2025 , 06/03/2024, 06/03/2023, Additional history exists Colorectal Cancer Screening 06/15/2027 FIT-DNA Q 3 years 06/15/2027 06/15/2024 FIT/ DNA Q 3 YEARS (AUTO ORDER) 06/15/2027 06/15/2024, 06/15/2024, 08/23/2020 Colorectal Cancer Screening (AUTO ORDER) 06/15/2029 FLEX SIG/CT COLONOGRAPHY Q 5 YEARS (AUTO ORDER) 06/15/2029 06/15/2024, 06/15/2024 RSV VACCINE (60+ or ) (1 - 1-dose 75+ series) 2035 Procedures Procedure Name Priority Date/Time Associated Diagnosis Comments COLON CANCER SCREEN, STOOL DNA Routine 06/15/2024 11:20 PM CDT Encounter for colorectal cancer screening MAMMO 3D JAS SCREEN BILAT W OR WO CAD Routine 02/19/2024 Screening mammogram, encounter for from Last 3 Months or Most Recently Relevant to Health Maintenance Results * COLON CANCER SCREEN, STOOL DNA (06/15/2024 11:20 PM CDT) COLOGUARD RESULT Negative Negative [facility] Comment: NEGATIVE TEST RESULT. A negative Cologuard result indicates a low likelihood that a colorectal cancer (CRC) or advanced adenoma (adenomatous polyps with more advanced pre-malignant features) is present. The chance that a person with a negative Cologuard test has a colorectal cancer is less than 1 in 1500 (negative predictive value >99.9%) or has an advanced adenoma is less than 5.3% (negative predictive value 94.7%). These data are based on a prospective cross-sectional study of 10,000 individuals at average risk for colorectal cancer who were screened with both Cologuard and colonoscopy. (Desire Choi al, N Engl J Med 2014;370(14):3158-2157) The normal value (reference range) for this assay is negative. COLOGUARD RE-SCREENING RECOMMENDATION: Periodic colorectal cancer screening is an important part of preventive healthcare for asymptomatic individuals at average risk for colorectal cancer. Following a negative Cologuard result, the [place] Cancer Society and U.S. Multi-Society Task Force screening guidelines recommend a Cologuard re-screening interval of 3 years. References: [place] [employer] Society Guideline for Colorectal Cancer Screening: https://www.cancer.org/cancer/miwue-ewrftm-fhgscl/evqmipnyo-xprwcxjtd-lsrnxpp/ac s-rec ommendations.html.; Gregorio VILLAGOMEZ, Ryan PIERRE, Sara MirandaK, Colorectal Cancer Screening: Recommendations for Physicians and Patients from the U.S. Multi-Society Task Force on Colorectal Cancer Screening , Am J Gastroenterology 2017; 112:0760-1658. TEST DESCRIPTION: Composite algorithmic analysis of stool DNA-biomarkers with hemoglobin immunoassay. Quantitative values of individual biomarkers are not reportable and are not associated with individual biomarker result reference ranges. Cologuard is intended for colorectal cancer screening of adults of either sex, 45 years or older, who are at average-risk for colorectal cancer (CRC). Cologuard has been approved for use by the U.S. FDA. The performance of Cologuard was established in a cross sectional study of average-risk adults aged 50-84. Cologuard performance in patients ages 45 to 49 years was estimated by sub-group analysis of near-age groups. Colonoscopies performed for a positive result may find as the most clinically significant lesion: colorectal cancer [4.0%], advanced adenoma (including sessile serrated polyps greater than or equal to 1cm diameter) [20%] or non- advanced adenoma [31%]; or no colorectal neoplasia [45%]. These estimates are derived from a prospective cross-sectional screening study of 10,000 individuals at average risk for colorectal cancer who were screened with both Cologuard and colonoscopy. (Desire Brand et al, N Engl J Med 2014;370(14):9268-3939.) Cologuard may produce a false negative or false positive result (no colorectal cancer or precancerous polyp present at colonoscopy follow up). A negative Cologuard test result does not guarantee the absence of CRC or advanced adenoma (pre-cancer). The current Cologuard screening interval is every 3 years. ([place] Cancer Society and U.S. Multi-Society Task Force). Cologuard performance data in a 10,000 patient pivotal study using colonoscopy as the reference method can be accessed at the following location: www.[employer]/results. Additional description of the Cologuard test process, warnings and precautions can be found at www.colNeurolinkrd.[employer]. Stool STOOL SPECIMEN / Unknown 06/15/2024 11:20 PM CDT 06/17/2024 1:45 PM CDT us Evie Brunner ELECTRICAL TEST ENGINEER BODY FLUIDS AND STOOLS Final Res ult [facility] CLIA # [id number] [address] , [address] [place] [address] * MAMMO 3D JAS SCREEN BILAT W OR WO CAD (02/19/2024) Anatomical Region Laterality Modality Breast Bilateral Mammography us Eliana Caruso ELECTRICAL TEST ENGINEER MAMMO ORDERABLES Final R esult from Last 3 Months or Most Recently Relevant to Health Maintenance Insurance [facility] MEDICARE HMO Care Teams Last Repairer Relationship Specialty Start Date End Date Rafael Mcgee MD [address] [phone] PCP - General Family Practice 06/14/21
--- NOTE | 2025-05-22 05:44 | XRR_ITS ---
PROCEDURE INFORMATION: Exam: XR Chest Exam date and time: 05/22/2025 5:44 AM Age: 64 years old Clinical indication: Chest pressure; Prior surgery; Surgery date: 6+ months; Surgery type: Breast augmentation; C/O chest pain. History of dextrocardia. ; Additional info: Cp TECHNIQUE: Imaging protocol: Radiologic exam of the chest. Views: 1 view. COMPARISON: No relevant prior studies available. FINDINGS: Lungs: Left basilar atelectasis adjacent to mildly elevated left hemidiaphragm. This could potentially be a chronic finding but there are no prior studies for comparison. Pleural spaces: No significant pleural fluid. No pneumothorax detected. Heart/Mediastinum: Heart size within normal range but accentuated by the AP technique, dextrocardia, and scoliosis. There is no pulmonary vascular congestion. Bones/joints: Thoracolumbar scoliosis is present. XR/XR chest 1V portable [id number] IMPRESSION: Low lung volumes. Mild left basilar atelectasis.
--- NOTE | 2025-05-22 05:45 | ECG_ITS ---
[facility] 2025-[facility]22 Pat Name: Kathie Woods Department: Room: Gender: Female Ramp Manager: : 1960 Requested By: Emma Adames Order Number: [id number] Bryce MD: Jacob Norman M.D. Measurements Intervals [place] Rate: 96 P: 57 [place]: 155 QRS: 42 QRSD: 90 T: 42 QT: 350 QTc: 442 Interpretive Statements SINUS RHYTHM POSSIBLE RIGHT VENTRICULAR CONDUCTION DELAY [RSR (QR) IN V1/V2] EARLY R WAVE PROGRESSION No previous ECG available for comparison Electronically Signed On 05-23-2025 22:32:39 CDT by Jacob Norman M.D. [email or web address]
--- NOTE | 2025-05-22 05:46 | ED_ITS ---
HPI - Chest Pain 2 General: Chief Complaint: Chest Pain Stated Complaint: HEART FLUTTER-RESOLVED Source: patient and EMS Mode of arrival: EMS Limitations: no limitations History of Present Illness: 64-year-old female states that she had w obie up this morning with fluttering feeling in her chest. She states she is having this for weeks and has had in the past before. She denies any pain she states the feeling since resolved she denies any shortness of breath denies any vomiting or diarrhea. Denies any worse improved factors Associated symptoms: Deny abdominal pain, dyspnea, fever(s), nausea or vomiting Related Data Home Medications ?Medication ?Instructions ?Recorded ?Confirmed atorvastatin 10 mg tablet (Lipitor) 10 mg PO DAILY 01/25/23 calcium carbonate (Calcium 500) 500 mg PO DAILY 01/25/23 cholecalciferol (vitamin D3) 250 250 mcg PO DAILY 06/2301/25/23 mcg (10,000 unit) capsule diphenhydramine HCl 25 mg capsule 25 mg PO TID PRN All ergy Symptoms 07/09/22 01/25/23 (Benadryl) lisinopril 5 mg tablet 5 mg PO DAILY 07/09/2201/25 omega 3-xqy-nnb-fish oil 300 1 cap PO DAILY 07/09/22 0 01/25/23 mg-1,000 mg capsule (Fish Oil) paroxetine HCl 40 mg tablet (Paxil) 40 mg PO DAILY 01/25/23 buspirone 5 mg tablet 2.5 mg PO TID 12/10/2201/25 coenzyme Q10 10 mg capsule (Co 10 mg PO DAILY 12/10/22 01/25/23 Q-10) lansoprazole 30 mg capsule,delayed 30 mg PO DAILY 11/2201/25/23 release (Prevacid) kfcnxyos-xnx-dplwg ac 400 1 tab PO DAILY 12/10/2202/12 mcg-calcium carb 500 mg-vit K1 20 mcg tablet (Women's 50 Plus Daily Formula) ondansetron 4 mg disintegrating 4 mg translingual Q8H PRN Nausea 12/10/22 01/25/23 tablet sumatriptan succinate 50 mg tablet 50 mg PO Q2H PRN Mi graine Headache 12/10/22 01/25/23 Previous Rx's ?Medication ?Instructions ?Recorded acetaminophen 325 mg capsule 325 mg PO Q4H PRN fever o r pain 12/13/22 #60 caps docusate sodium 100 mg capsule 100 mg PO BID #60 caps 12/13/22 (Colace) ferrous sulfate 325 mg (65 mg 325 mg PO BID #60 tabs 0 12/13/22 iron) tablet (Iron (ferrous sulfate)) ibuprofen 800 mg tablet 800 mg PO TID PRN pain #60 t abs 12/13/22 estradiol 0.01% (0.1 mg/gram) 1 g vaginal DAILY Menopa use #42.5 01/25/23 vaginal cream grams sulfamethoxazole 800 1 tab PO BID #14 tabs mg-trimethoprim 160 mg tablet (Bactrim DS) Allergies Allergy/AdvReac Type Severity Reaction Status Date / Time No Known Allergies Allergy Verified 01/25/23 14:39 Review of Systems 2 Const: Denies: fever(s), chills, body aches or change in appetite ENMT: Denies: throat pain or dental pain Card: Reports: chest pain Resp: Denies: dyspnea GI: Denies: abdominal pain, nausea, vomiting or diarrhea : Denies: dysuria Musc: Denies: neck pain or back pain Skin/Breast: Denies: rash Neuro: Denies: headache(s) PFSH ED 2 PFSH: Medical History Tachycardia Hyperlipidemia Hypertension Indigestion Anemia Menstrual migraine Anxiety and depression Family history of ovarian cancer Surgical History History of hysterectomy (~12/12/22) LAVH, BSO, Anterior colporrhaphy augmented with allograft. Single Incision mid urethral sling. Cystoscopy. Performed by Charlie at [facility] for Grade 3 cystocele. Family History Other Ovarian cancer Denies family history of Colon cancer Pancreatic cancer Thyroid cancer Diabetes Heart disease Breast cancer Cancer Hypertension Uterine cancer Social History Smoking and tobacco/nicotine status: never used tobacco/nicotine Physical Exam 2 Const: COMMON NORMALS: no acute distress, patient oriented x3 and healthy appearing HENMT: COMMON NORMALS: normocephalic and atraumatic HEAD & SCALP: n ormocephalic and atraumatic Eye: COMMON NORMALS: Equal, round and reactive pupils present and EOMs intact bilaterally PUPIL: Yes Equal, round and reactive pupils present Neck/C-Spine: COMMON NORMALS: full ROM and supple Chest: COMMONS NORMALS: normal inspection of the chest and normal palpation of entire chest wall Resp: COMMON NORMALS: normal respiratory effort, No retractions, No use of accessory muscles and clear to auscultation bilaterally AUSCULTATION: clear to auscultation bilaterally Cardio: COMMON NORMALS: regular rate, regular rhythm and No murmurs present (Cardio) RATE: regular rate RHYTHM: regular rhythm GI: COMMON NORMALS: Normal to inspection, nondistended, normoactive bowel sounds present, Soft to palpation, non-tender and no masses PALPATION: Yes Soft to palpation Extremity: COMMON NORMALS: normal to inspection and full ROM Neuro: COMMON NORMALS: patient oriented x3, moves all extremities and no focal motor deficits Psych: COMMON NORMALS: mental status grossly normal, Normal thought process present and cooperative THOUGHT PROCESS: Normal thought process present Skin: COMMON NORMALS: no rashes or lesions noted and no wounds GENERAL SKIN EXAM: no rashes or lesions noted Course 2 Vital Signs: Vital signs: Vital Signs Temperature 98.1 F 05/22/25 05:36 Pulse Rate 84 05/22/25 06:02 Respiratory Rate 16 05/22/25 06:02 Blood Pressure 115/79 05/22/25 06:02 Pulse Oximetry 98 05/22/25 06:02 Oxygen Delivery Me thod Room Air 05/22/25 06:02 MDM - Chest Pain Medical Decision Making Patient presents for chest pains atypical in nature she has had no pain here initial repeat troponins are negative no signs of ACS no signs of PE no signs of dissection she is stable for discharge follow-up with PCP return if worsening. Medical Records I reviewed the patient's medical records. Lab Data I reviewed the patient's lab results. 05/22/25 05:48 05/22/25 05:48 Radiology Impressions Chest X-Ray 05/22/25 05:44 IMPRESSION: Low lung volumes. Mild left basilar atelectasis. Laboratory Results WBC 4.76 10^3/uL (3.29-11.43) 05/22/25 05:48 RBC 4.61 10^6/uL (3.85-5.65) 05/22/25 05:48 Hgb 14.00 g/dL (11.27-16.99) 05/22/25 05:48 Hct 41.4 % (36-47) 05/22/25 05:48 MCV 89.8 fl (85-98) 05/22/25 05:48 MCH 30.4 pg (27-33) 05/22/25 05:48 MCHC 33.8 g/dL (30-55) 05/22/25 05:48 RDW 12.2 % (12.1-15.1) 05/22/25 05:48 Plt Count 156 10^3/cmm (157-399) L 05/22/25 05:48 MPV 9.8 fL (7.4-10.4) 05/22/25 05:48 Neut % (Auto) 50.4 % 05/22/25 05:48 Lymph % (Auto) 33.4 % 05/22/25 05:48 [place] % (Auto) 7.4 % 05/22/25 05:48 Eos % (Auto) 8.2 % 05/22/25 05:48 Baso % (Auto) 0.4 % 05/22/25 05:48 Neut # (Auto) 2.40 10^3/uL (1.8-7.7) 05/22/25 05:48 Lymph # (Auto) 1.6 10^3/uL (0.8-4.8) 05/22/25 05:48 [place] # (Auto) 0.4 10^3/uL (0.2-0.9) 05/22/25 05:48 Eos # (Auto) 0.4 10^3/uL (0.0-0.8) 05/22/25 05:48 Baso # (Auto) 0.0 10^3/uL (0.0-0.1) 05/22/25 05:48 Nucleated RBC % (auto) 0 % 05/22/25 05:48 Nucleated RBCs # 0.0 /100WBC 05/22/25 05:48 Sodium 138 mmol/L (136-145) 05/22/25 05:48 Potassium 4.0 mmol/L (3.5-5.1) 05/22/25 05:48 Chloride 102 mmol/L (98-107) 05/22/25 05:48 Carbon Dioxide 26 mmol/L (22-29) 05/22/25 05:48 Anion Gap 14.0 (5-19) 05/22/25 05:48 BUN 15 mg/dL (8-23) 05/22/25 05:48 Creatinine 0.7 mg/dL (0.5-0.9) 05/22/25 05:48 GFR Calculation 84.2 mL/min (90-130) L 05/22/25 05:48 Glucose 119 mg/dL (65-115) H 05/22/25 05:48 Calculated Osmolality 288 mOsm/kg (285-295) 05/22/25 05:48 Calcium 9.0 mg/dL (8.5-10.5) 05/22/25 05:48 Total Bilirubin 0.5 mg/dL (0.15-1.2) 05/22/25 05:48 AST 43 U/L (0-32) H 05/22/25 05:48 ALT 15 U/L (0-33) 05/22/25 05:48 Alkaline Phosphatase 92 U/L (35-105) 05/22/25 05:48 Troponin T Baseline < 6 ng/L (0-10) 05/22/25 05:48 Troponin T 120 Minute < 6.0 ng/L (0-10) 05/22/25 07:23 Delta Troponin T 0 ABS# (0-10) 05/22/25 07:23 Total Protein 6.7 g/dL (6.6-8.7) 05/22/25 05:48 Albumin 4.2 g/dL (3.5-5.2) 05/22/25 05:48 Globulin 2.5 g/dL (1.3-4.6) 05/22/25 05:48 Lipase 30 U/L (13-60) 05/22/25 05:48 All radiology interpretation(s) finalized by discharge Clincial Decision Support The following clinical decision support tools were used to aid in care of the patient HEART Score -> History: Slightly Suspicous, EKG: Normal, Age: 45-64 yrs, Risk Factors: No Risk Factors Known, Troponin: Baseline Trop <16 ng/L. Resulting HEART Score: 1. Discharge Plan Discharge Patient Disposition: Home Clinical Impression: Chest pain Condition: Stable Prescriptions: No Action diphenhydramine HCl [Benadryl] 25 mg capsule 25 mg PO TID PRN (Reason: Allergy Symptoms) calcium carbonate [Calcium 500] 500 mg calcium (1,250 mg) tablet,chewable 500 mg PO DAILY omega 6-qxn-nup-fish oil [Fish Oil] 300-1,000 mg capsule 1 cap PO DAILY cholecalciferol (vitamin D3) 250 mcg (10,000 unit) capsule 250 mcg PO DAILY atorvastatin [Lipitor] 10 mg tablet 10 mg PO DAILY paroxetine HCl [Paxil] 40 mg tablet 40 mg PO DAILY lisinopril 5 mg tablet 5 mg PO DAILY estradiol 0.01 % (0.1 mg/gram) cream 1 g vaginal DAILY Qty: 42.5 0RF Rx Instructions: for 30 days buspirone 5 mg tablet 2.5 mg PO TID coenzyme Q10 [Co Q-10] 10 mg capsule 10 mg PO DAILY sumatriptan succinate 50 mg tablet 50 mg PO Q2H PRN (Reason: Migraine Headache) lansoprazole [Prevacid] 30 mg Capsule,Delayed Release(Dr/Ec) 30 mg PO DAILY ondansetron 4 mg tablet,disintegrating 4 mg translingual Q8H PRN (Reason: Nausea) Women's 50 Plus Daily Formula 400 mcg-500 mg calcium-20 mcg Tablet 1 tab PO DAILY ibuprofen 800 mg tablet 800 mg PO TID PRN (Reason: pain) Qty: 60 0RF Iron (ferrous sulfate) 325 mg (65 mg iron) tablet 325 mg PO BID Qty: 60 0RF Colace 100 mg capsule 100 mg PO BID Qty: 60 0RF acetaminophen 325 mg capsule 325 mg PO Q4H PRN (Reason: fever or pain) Qty: 60 0RF Bactrim DS 800-160 mg tablet 1 tab PO BID Qty: 14 0RF Discharge Orders: Discharge ED (Routine); Ordered 05/22/25 Ordered By: Emma Adames Referrals: Evie Brunner, [facility] [Primary Care Provider, Family Practice] Discharge Diet: Advance as tolerated Discharge Activity: Resume usual activity Patient Instructions: Chest Pain (ED) Print Language: Bangladeshi Coding Level of Care Code ED Glazing Superintendent for Melani oDyle
[2025-05-22 05:54] LABS: Hematocrit 41.4 % (36-47); Hemoglobin 14.00 g/dL (11.27-16.99); Mean Corpuscular HGB Conc 33.8 g/dL (30-55); Mean Corpuscular Hemoglobin 30.4 pg (27-33); Mean Corpuscular Volume 89.8 fl (85-98); Nucleated Red Blood Cells % 0 %; Platelet Count 156 10^3/cmm (157-399); Red Blood Count 4.61 10^6/uL (3.85-5.65); White Blood Count 4.76 10^3/uL (3.29-11.43)
[2025-05-22 06:02] VITALS: BP 115/79; PULSE 84; RESP 16; O2SAT 98
[2025-05-22 06:12] LABS: Troponin(5th) Baseline < 6 ng/L (0-10)
[2025-05-22 06:14] LABS: Alanine Aminotransferase 15 U/L (0-33); Albumin Level 4.2 g/dL (3.5-5.2); Alkaline Phosphatase 92 U/L (35-105); Anion Gap 14.0 (5-19); Aspartate Amino Transferase 43 U/L (0-32); Blood Urea Nitrogen 15 mg/dL (8-23); Calcium 9.0 mg/dL (8.5-10.5); Carbon Dioxide 26 mmol/L (22-29); Chloride 102 mmol/L (98-107); Creatinine Clr Calc Pharmacy 85.1392; Globulin 2.5 g/dL (1.3-4.6); Glucose 119 mg/dL (65-115); Lipase 30 U/L (13-60); Osmolality Calculated 288 mOsm/kg (285-295); Potassium 4.0 mmol/L (3.5-5.1); Sodium 138 mmol/L (136-145); Total Protein 6.7 g/dL (6.6-8.7)
[2025-05-22 07:43] LABS: Troponin 5 2HR < 6.0 ng/L (0-10); Troponin 5 2HR Delta 0 ABS# (0-10)
[2025-05-22 07:59] VITALS: BP 124/54; PULSE 79; O2SAT 95
== END 2025-05-22 08:17 | disposition home or self-care (01) ==
PROVIDERS: Emergency Provider Emergency Medicine; PCP Nurse Practitioner Family
DX: R07.9 Chest pain, unspecified (principal); E78.5 Hyperlipidemia, unspecified; I10 Essential (primary) hypertension
CPT/HCPCS: 36415; 71045; 80053; 83690; 84484; 85025; 93005; 99285